=== PATIENT | female | born 1965 | race Caucasian/White ===

== ENCOUNTER 2017-12-15 09:21 | Outpatient (CLI) | payer OTHER ==
--- NOTE | 2017-12-15 20:37 | RAD ---
THORACIC SPINE 12/15/17 AP and lateral views were provided. No fracture, dislocation, or disc space narrowing was seen. Degen erative changes are present but minor. IMPRESSION: No significant findings. POS: HOME
--- NOTE | 2017-12-15 21:02 | RAD ---
CERVICAL SPINE THREE VIEWS: 12/15/17 There is loss of the normal cervical lordosis which may be due to muscle spasm. There is disc space n arrowing at C4-C5 and to a lesser extent at C5-C6 and C6-C7. Small anterior osteophytes are seen at t hese levels. There is no fracture, dislocation, or bony destruction. The C1 to dens distance is emily l and the soft tissues are normal in thickness. Some minimal cervical ribs are noted at the C7 level. IMPRESSION: 1. Straightening of the cervical spine. 2. Evidence of degenerative disc disease which is probably significant at the C4 through C6 leve ls. MRI would be useful in assessing any neural impingement. POS: HOME
== END 2017-12-15 09:22 | disposition home or self-care (01) ==
LOC: BURRAD 09:21
PROVIDERS: ATTEND Physician Assistant
DX: M54.2 Cervicalgia (principal); M50.30 Other cervical disc degeneration, unspecified cervical region
CPT/HCPCS: 72040; 72072